=== PATIENT | female | born 2000 | race African-American/Black ===

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

== ENCOUNTER 2020-06-18 19:49 | Inpatient (IN) | payer OTHER ==
[~2020-06-18] VITALS: Ht 170.2 cm; Wt 61.7 kg
[~2020-06-18 19:49] MED LIST changes: +ISENTRESS400 MG PO; +LOMOTIL 2.5-0.1 EAC1 PO; +TRUVADA 200 MG1 EACH PO; +ZOFRAN4 MG PO
[2020-06-18 20:55] LABS: HEMATOCRIT 33.6 % (36.0-48.0); HEMOGLOBIN 11.2 g/dL (12-16); MCH 29.6 pg (26.0-34.0); MCHC 33.3 g/dL (31.0-37.0); MCV 88.9 fL (80.0-100.0); MEAN PLATELET VOLUME 10.5 fL (7.4-10.4); RBC 3.78 10x6/uL (4.00-5.40); RDW 14.1 % (11.5-14.5); WBC 9.7 10x3/uL (4.8-10.8)
[2020-06-18 21:25] VITALS: BP 115/57; Ht 170.2 cm; Wt 61.7 kg
[2020-06-18 21:28] LABS: UDS - AMPHET NEGATIVE QUAL (NEGATIVE); UDS - BARB NEGATIVE QUAL (NEGATIVE); UDS - BENZO NEGATIVE QUAL (NEGATIVE); UDS - COCAINE NEGATIVE QUAL (NEGATIVE); UDS - OPIATE NEGATIVE QUAL (NEGATIVE); UDS - PCP NEGATIVE QUAL (NEGATIVE); UDS - THC POSITIVE QUAL (NEGATIVE)
[2020-06-19 07:30] VITALS: BP 112/67
--- NOTE | 2020-06-19 07:30 | NUR ---
to pt's room, pt is awake, sitting up in the bed. chrisjovani has served breakfast tray on bedside table. pt able to fully move and feel both legs. fundus firm, u/2, small rubra lochia, no clots. pericare given, peripad/panties on. srup x2, call light and phone within reach.
--- NOTE | 2020-06-19 10:00 | NUR ---
to pt's room, pt is sitting up in the bed, pt assisted up to br, gait slow, but steady. pt to br, voids moderate amount of urine, without difficulty, pericare done with peribottle and warm water. peripads/panties on. pt then transferred to room 1276, oriented to room, to room in crib. sr up x 2, call light and phone within reach.
--- NOTE | 2020-06-19 14:00 | NUR ---
room check, pt denies all needs at this time. pt denies needing pain medications. srup x2, call light and phone within reach.
--- NOTE | 2020-06-19 17:00 | NUR ---
DIETARY SERVES SUPPER TRAY, PT DENIES ALL OTHER NEEDS AT THIS TIME. SR UP X 2, CALL LIGHT AND PHONE WITHIN REACH.
--- NOTE | 2020-06-19 19:45 | NUR ---
PT SITTING UP FEEDING WILL RETURN FOR ASSESSMENT AND VS. PT REQUESTS PAIN MED FOR CRAMPING.
[2020-06-19 20:10] VITALS: BP 105/59
--- NOTE | 2020-06-19 20:10 | NUR ---
PT SITTING UP IN BED STATES TORADOL WAS MILDLY EFFECTIVE FOR PAIN CONTROL. VS OBTAINED. ASSESSMENT COMPLETE. LUNG SOUNDS CLEAR TO AUSCULTATION WITH HEART RATE REGULAR WITHOUT EXTRA SOUNDS. ABD SOFT. FUNDUS FIRM MIDLINE 2FB BELOW UMBILICUS WITH SMALL AMOUNT OF RUBRA LOCHIA. NO PERINEAL SWELLING OR BRUISING NOTED. PT STATES IS EMPYING BLADDER REGULARLY. SNACK TRAY AND DRINKS PROVIDED AND CLEAN GOWN.
--- NOTE | 2020-06-19 23:06 | NUR ---
PT SITTING UP CARING FOR , DENIES ANY COMPLAINTS OR NEEDS
--- NOTE | 2020-06-20 02:49 | NUR ---
pt resting quietly in bed, denies any complaints or needs
[2020-06-20 06:10] LABS: RAPID PLASMA REAGIN Non Reactive (Non Reactive)
[2020-06-20 06:21] LABS: HEMATOCRIT 30.6 % (36.0-48.0); HEMOGLOBIN 10.1 g/dL (12-16); MCH 29.6 pg (26.0-34.0); MCV 89.7 fL (80.0-100.0); RBC 3.41 10x6/uL (4.00-5.40); RDW 14.4 % (11.5-14.5)
[2020-06-20 06:27] LABS: WBC 6.9 10x3/uL (4.8-10.8)
[2020-06-20 08:06] VITALS: BP 106/58
--- NOTE | 2020-06-20 08:06 | NUR ---
SHIFT ASSESSMENT COMPLETED PER FLOWSHEET. VSS. FUNDUS FIRM, MIDLINE AND U2 WITH SCANT RUBRA LOCHIA, NO CLOTS NOTED. C/O ABD CRAMPING AND BACK ACHE 1-210, DENIES NEED FOR INTERVENTION, DISCUSSED POSSIBLE INTERVENTIONS WITH PT, VERBALIZES UNDERSTANDING STATES THAT SHE WILL CALL FOR MEDS IF NEEDED. POC DISCUSSED WITH PT, VERBALIZES UNDERSTANDING AND DENIES QUESTIONS. ENCOURAGED TO AMBULATE IN [place], VERBALIZES UNDERSTANDING AND DENIES QUESTIONS. SIGNIFICANT OTHER AT BEDSIDE, SUPPORTIVE AND ATTENTIVE TO PT AND NEEDS.
--- NOTE | 2020-06-20 08:25 | NUR ---
C/O ABD CRAMPING AND BACKACHE 01/06. TORADOL AND TYLENOL GIVEN PER ORDER AND PT REQUEST. SPRITE AND ICE WATER PROVIDED PER PT REQUEST. DENIES ADDITIONAL NEEDS. BED IN LOW POSITION WITH SRUP X2. CALL LIGHT AND PHONE WITHIN REACH.
--- NOTE | 2020-06-20 09:07 | NUR ---
PAIN REASSESSMENT COMPLETED. RESTING QUIETLY IN SEMI-FOWLERS POSITION WITH EYES CLOSED. RESP REGULAR AND UNLABORED, NO S/S OF DISTRESS NOTED. BED IN LOW POSITION WITH SRUP X2. CALL LIGHT AND PHONE WITHIN REACH. WILL CONTINUE TO MONITOR.
--- NOTE | 2020-06-20 10:17 | NUR ---
AMBULATORY IN HALLWAY WITH SIGNIFICANT OTHER. STEADY GAIT NOTED. DENIES PAIN AND NEEDS.
--- NOTE | 2020-06-20 11:17 | NUR ---
ROUNDS MADE. ICE WATER PROVIDED. DENIES ADDITIONAL NEEDS. REFUSES LINEN CHANGE, STATES THAT SHE WILL SHOWER AT LATER TIME AND HAVE SHEETS CHANGED AT THAT TIME. BED IN LOW POSITOIN WITH SRUP X2. CALL LIGHT AND PHONE WITHIN REACH. WILL CONTINUE TO MONITOR.
--- NOTE | 2020-06-20 12:26 | NUR ---
SITTING IN HIGH FOWLERS POSITION EATING LUNCH. DENIES PAIN AND NEEDS. RESTING QUIETLY IN OPEN CRIB AT BEDSIDE. BED IN LOW POSITION, SRUPX2. CALL LIGHT AND PHONE WITHIN REACH. WILL CONTINUE TO MONITOR.
--- NOTE | 2020-06-20 13:17 | NUR ---
PT SHOWN HOW TO SWADDLE WITH RETURN DEMONSTRATION FROM PT, DENIES NEEDS AND PAIN. POC DISCUSSED AND PT VERBALIZES UNDERSTANDING. DENIES NEED AND PAIN. ROOMING IN DISCUSSED WITH PT AND SHE IS AGREEABLE. BONDING WITH INFANT. SIGNIFICANT OTHER IN ROOM, SUPPORTIVE AND ATTENTIVE TO PT AND INFANT.
--- NOTE | 2020-06-20 14:32 | NUR ---
BOTTLE FEEDING AT THIS TIME. DENIES NEEDS. SIGNIFICANT OTHER RESTING ON COUCH AT BEDSIDE. BED IN LOW POSITION WITH SRUP X2. CALL LIGHT AND PHONE WITHIN REACH. WILL CONTINUE TO MONITOR.
--- NOTE | 2020-06-20 15:12 | NUR ---
VERBAL AND WRITTED D/C INSTRUCTIONS PROVIDED TO PT AND SIGNIFICANT OTHER, BOTH VERBALIZE UNDERSTANDING AND DENY QUESTIONS. PT PROVIDED WITH COPY OF D/C INSTRUCTIONS, PFW PP CARE INSTRUCTION, [employer] HANDOUT, AND SAVE YOUR LIFE HANDOUT. ROOMING IN AGREEMENT REVIEWED AND SIGNED. NBN PROVIDED WITH CONTACT SHEET AND NOTIFIED THAT PT WAS MOVED TO ROOM 1221 TO ROOM IN.
--- NOTE | 2020-06-20 16:00 | NUR ---
PT AMBULATORY TO ROOM 1221 TO ROOM IN AND INSTRUCTED ON CONTACTING NBN FOR ASSISTANCE WHEN NEEDED, VERBALIZES UNDERSTANDING.
== END 2020-06-20 16:00 | disposition home or self-care (01) | DRG 807 ==
LOC: D.LD 19:49
PROVIDERS: ADMIT Obstetrics & Gynecology; ATTEND Obstetrics & Gynecology
PROC: 10E0XZZ Delivery of Products of Conception, External Approach (ICD-10-PCS; principal; 2020-06-19)
DX: O36.5930 Maternal care for other known or suspected poor fetal growth, third trimester, not applicable or unspecified (principal); Z37.0 Single live birth; Z3A.38 38 weeks gestation of pregnancy; O77.0 Labor and delivery complicated by meconium in amniotic fluid; O99.334 Smoking (tobacco) complicating childbirth; F17.200 Nicotine dependence, unspecified, uncomplicated

== ENCOUNTER 2021-04-17 19:58 | Emergency (ER) | payer OTHER ==
[~2021-04-17] VITALS: Ht 170.2 cm; Wt 59.1 kg
[~2021-04-17 19:58] MED LIST changes: +REGLAN10 MG PO
[2021-04-17 20:10] VITALS: Ht 170.2 cm; Wt 59.1 kg
[2021-04-17 21:23] LABS: BACTERIA FEW HPF (<MOD); BILIRUBIN NEGATIVE (NEGATIVE); KETONE 1+ mg/dL (< 1+); NITRITE NEGATIVE (NEGATIVE); PH 6.5 (5.0-8.0); SQUAMOUS EPITHELIAL 1 HPF (0-4); UROBILINOGEN 3 mg/dL (< 2); WHITE CELLS - URINE 1 HPF (0-4)
[2021-04-17 22:33] LABS: BASOPHILS 0.3 % (0-2); EOSINOPHILS 0.6 % (0-7); HEMOGLOBIN 9.8 g/dL (12-16); LYMPHOCYTES 21.9 % (15-50); MCH 29.6 pg (26.0-34.0); MCHC 33.8 g/dL (31.0-37.0); MCV 87.8 fL (80.0-100.0); MEAN PLATELET VOLUME 8.8 fL (7.4-10.4); MONOCYTES 10.6 % (2-11); NEUTROPHILS 66.6 % (40-80); PLATELET COUNT 194 10x3/uL (130-400); RDW 13.7 % (11.5-14.5); WBC 8.8 10x3/uL (4.8-10.8)
[2021-04-17 22:46] LABS: CALC OSMOLALITY 273 mosm/kg (275-300); CALCIUM 8.6 mg/dL (8.5-10.1); CARBON DIOXIDE 21.7 mmol/L (21.0-32.0); CHLORIDE - SERUM 107 mmol/L (98-107); CREATININE - SERUM 0.7 mg/dL (0.6-1.3); GLUCOSE 74 mg/dL (74-106); POTASSIUM - SERUM 3.3 mmol/L (3.5-5.1); SODIUM 138 mmol/L (136-145); UREA NITROGEN 9 mg/dL (7-18); eGFR NON AFRICAN AMERICAN > 90 mL/min (90-120)
[2021-04-17 22:52] LABS: ALBUMIN 2.7 g/dL (3.4-5.0); ALKALINE PHOSPHATASE 139 U/L (30-120); ALT (SGPT) 30 U/L (10-68); BILIRUBIN - TOTAL 0.39 mg/dL (0.2-1.3); MAGNESIUM - SERUM 1.8 mg/dL (1.8-2.4); PROTEIN - SERUM 6.3 g/dL (6.4-8.2)
[2021-04-18 01:36] VITALS: BP 94/55
[2021-04-18] MEDS ORDERED: PRENAVITE1 TAB PO (05:46)
== END 2021-04-18 01:53 | disposition short-term general hospital (02) ==
LOC: D.ER 19:58
PROVIDERS: Emergency Medicine
DX: O26.893 Other specified pregnancy related conditions, third trimester (principal); Z3A.32 32 weeks gestation of pregnancy; M54.5 Low back pain; M79.671 Pain in right foot; V49.88XA Car occupant (driver) (passenger) injured in other specified transport accidents, initial encounter

== ENCOUNTER 2021-04-18 02:12 | Outpatient (CLI) | payer OTHER ==
[2021-04-17 20:10] VITALS: BMI 20.4
[2021-04-18 02:46] LABS: UDS - AMPHET NEGATIVE QUAL (NEGATIVE); UDS - BARB NEGATIVE QUAL (NEGATIVE); UDS - BENZO NEGATIVE QUAL (NEGATIVE); UDS - COCAINE NEGATIVE QUAL (NEGATIVE); UDS - OPIATE NEGATIVE QUAL (NEGATIVE); UDS - PCP NEGATIVE QUAL (NEGATIVE); UDS - THC POSITIVE QUAL (NEGATIVE)
[2021-04-18] MEDS ORDERED: PRENAVITE1 TAB PO (05:46)
== END 2021-04-18 06:38 | disposition home or self-care (01) ==
LOC: D.LDO 02:12
PROVIDERS: ATTEND Obstetrics & Gynecology
DX: O26.899 Other specified pregnancy related conditions, unspecified trimester (principal); V49.9XXA Car occupant (driver) (passenger) injured in unspecified traffic accident, initial encounter